=== PATIENT | female | born 1945 | race Caucasian/White ===

== ENCOUNTER 2017-01-26 15:27 | Emergency (ER) | payer MEDICARE, MEDICAID ==
[2017-01-26] MEDS ORDERED: NS 0.9% 1000 ML* 1,000 ML IV ONE (17:03)
[2017-01-26] MEDS ORDERED: LORazepam INJ* 2 MG/ML 1 ML VIAL IV PUSH ONE (17:03)
--- NOTE | 2017-01-26 17:56 | RAD ---
CLINICAL HISTORY: Rectal bleeding COMPARISON: None TECHNIQUE: Noncontrast CT examination of the abdomen and pelvis from the lung bases through the initial tuberosities. FINDINGS: VISUALIZED LUNG BASES: There is consolidation in the dependent inferior portion of the right middle lobe with air bronchograms. At the dependent inferior margin of the left upper lobe there is a 1.5 cm nodule abutting the major fissure. There are hypoventilatory changes at the bilateral lung bases. There is no pleural effusion. There is a small pericardial effusion. ABDOMEN AND PELVIS: Evaluation of the solid organs and vasculature is limited without intravenous contrast. The liver, spleen, pancreas and adrenal glands are grossly normal in appearance. The gallbladder is normal. The kidneys are normal in appearance without focal mass, calcification or signs of hydronephrosis. Evaluation of the gastrointestinal tract is limited without oral contrast. The small and large bowel are not distended. The partially gas-filled appendix measures 6 mm in diameter (coronal image 49). There are distal colonic diverticula becoming more concentrated at the rectosigmoid colon. There is no definite wall thickening or infiltration of the pericolonic fat associated with acute diverticulitis. There is no gross retroperitoneal or mesenteric lymphadenopathy. The pelvic viscera is normal in appearance. The abdominal aorta and iliac arteries are normal in course and diameter. Degenerative changes include multilevel loss of intervertebral disc height involving the lower thoracic and lumbar spine and vacuum disc phenomenon at L5/S1 and L3/L4. There is evidence of vertebroplasty at the L1 vertebral body. There is a chronic appearing compression deformity of the L2 vertebral body.There are no sinister bone lesions. IMPRESSION: 1. Consolidation with air bronchograms in the dependent right middle lobe. Please correlate to signs or symptoms of pneumonia. 2. A 1.5 cm round density abutting the fissure at the dependent-most portion of the left upper lobe has a morphology most consistent with round atelectasis. A neoplasm is considered unlikely but is not completely excluded on this CT imaging alone. 3. Diverticulosis without acute inflammatory changes associated with acute diverticulitis. 4. Additional chronic, degenerative and iatrogenic findings described in the body of the report.
[2017-01-26 18:26] LABS: Urine Bacteria Absent (Absent); Urine Bilirubin Negative (Negative); Urine Glucose Negative (Negative); Urine Nitrite Negative (Negative)
[2017-01-26 18:47] LABS: Hematocrit 45 % (35-47); Hemoglobin 14.9 g/dl (12.0-16.0); Mean Corpuscular HGB Conc 33 g/dl (31-36); Mean Corpuscular Hemoglobin 29 pg (27-31); Mean Corpuscular Volume 87 fL (80-97); Mean Platelet Volume 8 um3 (7.4-10.4); Red Blood Count 5.19 10^6/ul (4.0-5.4); Red Cell Distribution Width 14 % (10.5-15); White Blood Count 7.5 10^3/ul (3.5-10.8)
[2017-01-26 19:00] LABS: Albumin 4.5 g/dL (3.2-5.2); BUN/Creatinine Ratio 25.4 (8-20); C Reactive Protein 2.53 mg/L (< 5.00); Calcium 9.6 mg/dL (8.6-10.3); EGFR African American 104.4 (>60); EGFR Non-African American 81.2 (>60); Globulin 3.1 g/dL (2-4); Potassium 3.5 mmol/L (3.5-5.0); Total Bilirubin 0.7 mg/dL (0.2-1.0); Total Protein 7.6 g/dL (6.4-8.9)
[2017-01-26 19:48] VITALS: BP 124/75
--- NOTE | 2017-01-26 19:58 | ED ---
Jr Ontiveros Gabriel, scribed for Eloisa Sabillon MD on 01/26/17 at 1634 . Abdominal Pain/Female - HPI Summary HPI Summary: This patient is a 71 year old F presenting to [facility] with a chief complaint of ABD pain that began a month ago. The patient rates the pain 8/10 in severity. Symptoms alleviated by nothing. Patient reports blood in stool, constipation, and rectal pain. She reports feeling like she is not fully emptying and feels a blockage high in her intestine. Pt has been taking Miralax with no relief. - History of Current Complaint Chief Complaint: EDAbdPain Stated Complaint: RECTAL BLEEDING Time Seen by Provider: 01/26/17 16:28 Hx Obtained From: Patient Onset/Duration: Lasting Weeks - 8, Still Present Timing: Constant Pain Intensity: 8 Pain Scale Used: 0-10 Numeric Associated Signs and Symptoms: Positive: Other: - blood in stool, constipation, rectal kar Allergies/Adverse Reactions: Allergies Allergy/AdvReac Type Severity Reaction Status Date / Time No Known Allergies Allergy Verified 01/26/17 15:43 Home Medications: Home Medications clonazePAM TAB(*) [KlonoPIN TAB(*)] 0.5 mg PO BEDTIME PRN 01/26/17 [History Confirmed 01/26/17] PMH/Surg Hx/FS Hx/Imm Hx Previously Healthy: No Endocrine/Hematology History: Reports: Hx Thyroid Disease Musculoskeletal History: Reports: Hx Osteoporosis - Cancer History Cancer Type, 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 Infectious Disease History: No Infectious Disease History: Denies: Traveled Outside the [place] in Last 30 Days - Family History Known Family History: Positive: Diabetes Negative: Cardiac Disease - Social History Lives: Alone Alcohol Use: None Hx Substance Use: No Substance Use Type: Reports: None Hx Tobacco Use: No Review of Systems Positive: Abdominal Pain, Other - blood in stool, constipation Positive: Other - rectal pain All Other Systems Reviewed And Are Negative: Yes Physical Exam - Summary Physical Exam Summary: General: Well appearing, no pain distress, Skin: Warm, Skin Color Reflects Adequate Perfusion, Dry Eyes: EOMI, EMELIA ENT: Pharynx normal, TMs normal Neck: Supple, nontender Respiratory: CTA, breath sounds present, no rhonchi, no wheezes, no rales Cardiovascular: RRR, no murmur, no rub, no gallop Abdomen: Soft, nontender, Non-distended, no guarding, no rebound Bowel: Present Rectal: Negative rectal exam no blockages and no blood Musculoskeletal: TIMBO, No edema Neuro: Sensory/motor intact, A&Ox3, CN intact 2-12 Psych: Affect/mood appropriate Triage Information Reviewed: Yes Vital Signs On Initial Exam: Initial Vitals Temp Pulse Resp BP Pulse Ox 97.3 F 80 14 156/78 98 01/26/17 15:36 01/26/17 15:36 01/26/17 15:36 01/26/17 15:36 01/26/17 15:36 Vital Signs Reviewed: Yes Diagnostics - Vital Signs Vital Signs Temp Pulse Resp BP Pulse Ox 01/26/17 15:36 97.3 F 80 14 156/78 98 - Laboratory Lab Results: Lab Results 01/26/17 01/26/17 01/26/17 Range/Units 17:47 17:47 17:50 WBC 7.5 (3.5-10.8) 10^3/ul RBC 5.19 (4.0-5.4) 10^6/ul Hgb 14.9 (12.0-16.0) g/dl Hct 45 (35-47) % MCV 87 (80-97) fL MCH 29 (27-31) pg MCHC 33 (31-36) g/dl RDW 14 (10.5-15) % Plt Count 300 (150-450) 10^3/ul MPV 8 (7.4-10.4) um3 Neut % (Auto) 61.8 (38-83) % Lymph % (Auto) 29.0 (25-47) % [place] % (Auto) 7.0 (1-9) % Eos % (Auto) 1.5 (0-6) % Baso % (Auto) 0.7 (0-2) % Absolute Neuts (auto) 4.6 (1.5-7.7) 10^3/ul Absolute Lymphs (auto) 2.2 (1.0-4.8) 10^3/ul Absolute Monos (auto) 0.5 (0-0.8) 10^3/ul Absolute Eos (auto) 0.1 (0-0.6) 10^3/ul Absolute Basos (auto) 0.1 (0-0.2) 10^3/ul Absolute Nucleated RBC 0 10^3/ul Nucleated RBC % 0 Sodium 138 (133-145) mmol/L Potassium 3.5 (3.5-5.0) mmol/L Chloride 102 (101-111) mmol/L Carbon Dioxide 30 (22-32) mmol/L Anion Gap 6 (2-11) mmol/L BUN 18 (6-24) mg/dL Creatinine 0.71 (0.51-0.95) mg/dL Est GFR ( Amer) 104.4 (>60) Est GFR (Non-Af Amer) 81.2 (>60) BUN/Creatinine Ratio 25.4 H (8-20) Glucose 88 (70-100) mg/dL Calcium 9.6 (8.6-10.3) mg/dL Total Bilirubin 0.70 (0.2-1.0) mg/dL AST 21 (13-39) U/L ALT 21 (7-52) U/L Alkaline Phosphatase 93 (34-104) U/L C-Reactive Protein 2.53 (< 5.00) mg/L Total Protein 7.6 (6.4-8.9) g/dL Albumin 4.5 (3.2-5.2) g/dL Globulin 3.1 (2-4) g/dL Albumin/Globulin Ratio 1.5 (1-3) Lipase 41 (11.0-82.0) U/L Urine Color Yellow Urine Appearance Clear Urine pH 7.0 (5-9) Ur Specific [place] 1.015 (1.010-1.030) Urine Protein Negative (Negative) Urine Ketones Negative (Negative) Urine Blood Negative (Negative) Urine Nitrate Negative (Negative) Urine Bilirubin Negative (Negative) Urine Urobilinogen Negative (Negative) Ur Leukocyte Esterase 3+ H (Negative) Urine WBC (Auto) 2+(11-20/hpf) H (Absent) Urine RBC (Auto) Absent (Absent) Ur Squamous Epith Cells Present H (Absent) Urine Bacteria Absent (Absent) Urine Glucose Negative (Negative) Result Diagrams: 01/26/17 17:47 01/26/17 17:47 Lab Statement: Any lab studies that have been ordered have been reviewed, and results considered in the medical decision making process. - CT CT Pelvis CT Interpretation Completed By: Radiologist - 1. Consolidation with air bronchograms in the dependent right middle lobe. Please correlate to signs or symptoms of pneumonia. 2. A 1.5 cm round density abutting the fissure at the dependent-most portion of the left upper lobe has a morphology most consistent with round atelectasis. A neoplasm is considered unlikely but is not completely excluded on this CT imaging alone. 3. Diverticulosis without acute inflammatory changes associated with acute diverticulitis. 4. Additional chronic, degenerative and iatrogenic findings described in the body of the report. ED physician has reviewed this radiology report and agrees. Re-Evaluation - Re-Evaluation First Eval Re-Evaluation Time: 19:30 Change: Unchanged - Dicussed patient care and discharge Abdominal Pain Fem Course/Dx - Course Course Of Treatment: 71 yo female with rectal bleeding after trying to push stool out with concern over chronic constipation rectal discomfort and abd pain. her ct was neg for retained stool and this was discussed with the pt - Diagnoses Provider Diagnoses: Rectal pain, Constipation Discharge - Discharge Plan Condition: Stable Disposition: HOME Patient Education Materials: High Fiber Diet (ED), Rectal Pain (ED) Referrals: Chuy Herrera DO [Primary Care Provider] - 3 Days Additional Instructions: RETURN TO THE EMERGENCY DEPARTMENT FOR CHANGING OR WORSENING SYMPTOMS. The documentation as recorded by the Jr mcallister Gabriel accurately reflects the service I personally performed and the decisions made by , Eloisa Sabillon MD.
== END 2017-01-26 20:18 | disposition home or self-care (01) ==
LOC: ED 15:27
DX: K62.89 Other specified diseases of anus and rectum (principal); K59.00 Constipation, unspecified; R10.9 Unspecified abdominal pain
CPT/HCPCS: 36415; 74176; 80053; 81003; 81015; 83690; 85025; 86140; 87086; 96374; 99283; J2060

== ENCOUNTER 2018-04-27 11:23 | Emergency (ER) | payer MEDICARE, MEDICAID ==
[2018-04-27 13:08] VITALS: BP 137/88
[2018-04-27 13:32] LABS: Urine Appearance Clear; Urine Bacteria Absent (Absent); Urine Bilirubin Negative (Negative); Urine Blood 1+ (Negative); Urine Color Amber; Urine Glucose Negative (Negative); Urine Ketones 1+ (Negative); Urine Nitrite Negative (Negative); Urine Protein Negative (Negative); Urine Red Blood Cell Trace(0-2/hpf) (Absent); Urine Specific Gravity 1.024 (1.010-1.030); Urine Squamous Epithelial Cell Present (Absent); Urine Urobilinogen Negative (Negative); Urine White Blood Cell Trace(0-5/hpf) (Absent)
[2018-04-27 13:40] LABS: ABS Basophils 0.1 10^3/ul (0-0.2); ABS Eosinophils 0 10^3/ul (0-0.6); ABS Lymphocytes 1.5 10^3/ul (1.0-4.8); ABS Monocytes 0.6 10^3/ul (0-0.8); ABS Neutrophils 6.1 10^3/ul (1.5-7.7); ABS Nucleated RBC 0 10^3/ul; Eosinophil % 0.3 %; Hematocrit 43 % (35-47); Hemoglobin 14.2 g/dl (12.0-16.0); Lymphocyte % 18.2 %; Mean Corpuscular HGB Conc 33 g/dl (31-36); Mean Corpuscular Hemoglobin 29 pg (27-31); Mean Corpuscular Volume 87 fL (80-97); Mean Platelet Volume 7.9 fL (7.4-10.4); Nucleated Red Blood Cells % 0; Platelet Count 236 10^3/ul (150-450); Red Blood Count 4.94 10^6/ul (4.00-5.40); Red Cell Distribution Width 14 % (10.5-15); White Blood Count 8.4 10^3/ul (3.5-10.8)
[2018-04-27 13:49] LABS: Activated Partial Thrombo Time 30.9 seconds (26.0-36.3); INR 0.98 (0.77-1.02)
[2018-04-27 14:04] LABS: Albumin 4.1 g/dL (3.2-5.2); Albumin/Globulin Ratio 1.4 (1-3); BUN/Creatinine Ratio 25.7 (8-20); C Reactive Protein 56.52 mg/L (<8.01); Calcium 9.3 mg/dL (8.6-10.3); EGFR African American 99.2 (>60); Globulin 2.9 g/dL (2-4); Potassium 3.5 mmol/L (3.5-5.0)
--- NOTE | 2018-04-27 14:20 | ED ---
Abdominal Pain/Female - HPI Summary HPI Summary: 73 year old F presenting to [facility] with a chief complaint of gradually worsening , constant left sided flank pain described as sharp, radiating to her lower back since several weeks, worse since last week. The patient rates the pain 7/ 10 in severity. Symptoms aggravated by position changes. Symptoms alleviated by nothing. Patient reports increasing frequency in urination. Patient was seen in [place] for vaginal bleeding last week ago. Pap smear was done by [facility] that was inconclusive. Patient reports that she has had cancer twice. - History of Current Complaint Chief Complaint: EDFlankPain Stated Complaint: ABD/LOWER BACK PAIN Time Seen by Provider: 04/27/18 13:59 Hx Obtained From: Patient Onset/Duration: Lasting Weeks, Still Present, Worse Since - last week Timing: Constant Severity Currently: Severe Pain Intensity: 7 Pain Scale Used: 0-10 Numeric Location: Flank - left Radiates: Yes Radiates to: Back Character: Sharp Aggravating Factor(s): Other: - position changes Alleviating Factor(s): Nothing Associated Signs and Symptoms: Positive: Other: - increasing frequency in urination Allergies/Adverse Reactions: Allergies Allergy/AdvReac Type Severity Reaction Status Date / Time No Known Allergies Allergy Verified 04/27/18 14:16 Home Medications: Home Medications clonazePAM [Clonazepam] 0.5 mg PO DAILY PRN 04/27/18 [History Confirmed 04/27/18 ] PMH/Surg Hx/FS Hx/Imm Hx Previously Healthy: No Endocrine/Hematology History: Reports: Hx Thyroid Disease Musculoskeletal History: Reports: Hx Osteoporosis - Cancer History Cancer Type, 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 LEFT LUMPECTOMY Infectious Disease History: No Infectious Disease History: Denies: Traveled Outside the [place] in Last 30 Days - Family History Known Family History: Positive: Diabetes Negative: Cardiac Disease - Social History Alcohol Use: None Hx Substance Use: No Substance Use Type: Reports: None Hx Tobacco Use: No Smoking Status (MU): Unknown if Ever Smoked Review of Systems Positive: Other - left flank pain Positive: frequency All Other Systems Reviewed And Are Negative: Yes Physical Exam - Summary Physical Exam Summary: Appearance: The patient is well-nourished in no acute distress and in no acute pain. Skin: The skin is warm and dry and skin color reflects adequate perfusion. HEENT: The head is normocephalic and atraumatic. The pupils are equal and reactive. The conjunctivae are clear and without drainage. Nares are patent and without drainage. Mouth reveals moist mucous membranes and the throat is without erythema and exudate. The external ears are intact. The ear canals are patent and without drainage. The tympanic membranes are intact. Neck: The neck is supple with full range of motion and non-tender. There are no carotid bruits. There is no neck vein distension. Respiratory: Chest is non-tender. Lungs are clear to auscultation and breath sounds are symmetrical and equal. Cardiovascular: Heart is regular rate and rhythm. There is no murmur or rub auscultated. There is no peripheral edema and pulses are symmetrical and equal. Abdomen: mild LLQ tenderness, no CVA tenderness Musculoskeletal: There is no back tenderness noted. Extremities are non-tender with full range of motion. There is good capillary refill. There is no peripheral edema or calf tenderness elicited. Neurological: Patient is alert and oriented to person, place and time. The patient has symmetrical motor strength in all four extremities. Cranial nerves are grossly intact. Deep tendon reflexes are symmetrical and equal in all four extremities. Psychiatric: The patient is emotionally labile Triage Information Reviewed: Yes Vital Signs On Initial Exam: Initial Vitals Temp Pulse Resp BP Pulse Ox 98 F 90 16 153/94 98 04/27/18 11:30 04/27/18 11:30 04/27/18 11:30 04/27/18 11:30 04/27/18 11:30 Vital Signs Reviewed: Yes Diagnostics - Vital Signs Vital Signs Temp Pulse Resp BP Pulse Ox 04/27/18 13:05 98.6 F 88 16 137/88 97 04/27/18 11:30 98 F 90 16 153/94 98 - Laboratory Lab Results: Lab Results 04/27/18 04/27/18 04/27/18 Range/Units 12:07 13:31 13:31 WBC 8.4 (3.5-10.8) 10^3/ul RBC 4.94 (4.00-5.40) 10^6/ul Hgb 14.2 (12.0-16.0) g/dl Hct 43 (35-47) % MCV 87 (80-97) fL MCH 29 (27-31) pg MCHC 33 (31-36) g/dl RDW 14 (10.5-15) % Plt Count 236 (150-450) 10^3/ul MPV 7.9 (7.4-10.4) fL Neut % (Auto) 72.8 % Lymph % (Auto) 18.2 % [place] % (Auto) 7.7 % Eos % (Auto) 0.3 % Baso % (Auto) 1.0 % Absolute Neuts (auto) 6.1 (1.5-7.7) 10^3/ul Absolute Lymphs (auto) 1.5 (1.0-4.8) 10^3/ul Absolute Monos (auto) 0.6 (0-0.8) 10^3/ul Absolute Eos (auto) 0 (0-0.6) 10^3/ul Absolute Basos (auto) 0.1 (0-0.2) 10^3/ul Absolute Nucleated RBC 0 10^3/ul Nucleated RBC % 0 INR (Anticoag Therapy) (0.77-1.02) APTT (26.0-36.3) seconds Sodium 138 (135-145) mmol/L Potassium 3.5 (3.5-5.0) mmol/L Chloride 103 (101-111) mmol/L Carbon Dioxide 26 (22-32) mmol/L Anion Gap 9 (2-11) mmol/L BUN 18 (6-24) mg/dL Creatinine 0.70 (0.51-0.95) mg/dL Est GFR ( Amer) 99.2 (>60) Est GFR (Non-Af Amer) 82.0 (>60) BUN/Creatinine Ratio 25.7 H (8-20) Glucose 90 (70-100) mg/dL Lactic Acid (0.5-2.0) mmol/L Calcium 9.3 (8.6-10.3) mg/dL Magnesium 2.0 (1.9-2.7) mg/dL Total Bilirubin 1.00 (0.2-1.0) mg/dL AST 17 (13-39) U/L ALT 15 (7-52) U/L Alkaline Phosphatase 90 (34-104) U/L Total Creatine Kinase 30 (10-223) U/L Troponin I 0.00 (<0.04) ng/mL C-Reactive Protein 56.52 H (<8.01) mg/L B-Natriuretic Peptide (<=100) pg/mL Total Protein 7.0 (6.4-8.9) g/dL Albumin 4.1 (3.2-5.2) g/dL Globulin 2.9 (2-4) g/dL Albumin/Globulin Ratio 1.4 (1-3) Amylase 45 (29-103) U/L Lipase 28 (11.0-82.0) U/L Urine Color [place] Urine Appearance Clear Urine pH 5.0 (5-9) Ur Specific [place] 1.024 (1.010-1.030) Urine Protein Negative (Negative) Urine Ketones 1+ A (Negative) Urine Blood 1+ A (Negative) Urine Nitrate Negative (Negative) Urine Bilirubin Negative (Negative) Urine Urobilinogen Negative (Negative) Ur Leukocyte Esterase Trace A (Negative) Urine WBC (Auto) Trace(0-5/hpf) (Absent) Urine RBC (Auto) Trace(0-2/hpf) (Absent) Ur Squamous Epith Cells Present A (Absent) Urine Bacteria Absent (Absent) Urine Glucose Negative (Negative) 04/27/18 04/27/18 04/27/18 Range/Units 13:31 13:31 13:31 WBC (3.5-10.8) 10^3/ul RBC (4.00-5.40) 10^6/ul Hgb (12.0-16.0) g/dl Hct (35-47) % MCV (80-97) fL MCH (27-31) pg MCHC (31-36) g/dl RDW (10.5-15) % Plt Count (150-450) 10^3/ul MPV (7.4-10.4) fL Neut % (Auto) % Lymph % (Auto) % [place] % (Auto) % Eos % (Auto) % Baso % (Auto) % Absolute Neuts (auto) (1.5-7.7) 10^3/ul Absolute Lymphs (auto) (1.0-4.8) 10^3/ul Absolute Monos (auto) (0-0.8) 10^3/ul Absolute Eos (auto) (0-0.6) 10^3/ul Absolute Basos (auto) (0-0.2) 10^3/ul Absolute Nucleated RBC 10^3/ul Nucleated RBC % INR (Anticoag Therapy) 0.98 (0.77-1.02) APTT 30.9 (26.0-36.3) seconds Sodium (135-145) mmol/L Potassium (3.5-5.0) mmol/L Chloride (101-111) mmol/L Carbon Dioxide (22-32) mmol/L Anion Gap (2-11) mmol/L BUN (6-24) mg/dL Creatinine (0.51-0.95) mg/dL Est GFR ( Amer) (>60) Est GFR (Non-Af Amer) (>60) BUN/Creatinine Ratio (8-20) Glucose (70-100) mg/dL Lactic Acid 0.9 (0.5-2.0) mmol/L Calcium (8.6-10.3) mg/dL Magnesium (1.9-2.7) mg/dL Total Bilirubin (0.2-1.0) mg/dL AST (13-39) U/L ALT (7-52) U/L Alkaline Phosphatase (34-104) U/L Total Creatine Kinase (10-223) U/L Troponin I (<0.04) ng/mL C-Reactive Protein (<8.01) mg/L B-Natriuretic Peptide 36 (<=100) pg/mL Total Protein (6.4-8.9) g/dL Albumin (3.2-5.2) g/dL Globulin (2-4) g/dL Albumin/Globulin Ratio (1-3) Amylase (29-103) U/L Lipase (11.0-82.0) U/L Urine Color Urine Appearance Urine pH (5-9) Ur Specific [place] (1.010-1.030) Urine Protein (Negative) Urine Ketones (Negative) Urine Blood (Negative) Urine Nitrate (Negative) Urine Bilirubin (Negative) Urine Urobilinogen (Negative) Ur Leukocyte Esterase (Negative) Urine WBC (Auto) (Absent) Urine RBC (Auto) (Absent) Ur Squamous Epith Cells (Absent) Urine Bacteria (Absent) Urine Glucose (Negative) Result Diagrams: 04/27/18 13:31 04/27/18 13:31 Lab Statement: Any lab studies that have been ordered have been reviewed, and results considered in the medical decision making process. - Radiology CXR Radiology Interpretation Completed By: Radiologist Summary of Radiographic Findings: LOW LUNG VOLUMES, SMALL INFILTRATES AT BOTH LUNG BASES SUGGESTIVE OF ATELECTASIS. ED physician has reviewed this report. - CT Abd/Pel CT Interpretation Completed By: Radiologist Summary of CT Findings: NO HYDRONEPHROSIS OR NEPHROLITHIASIS. DIVERTICULOSIS. ED physician has reviewed this report. Re-Evaluation - Re-Evaluation First Eval Re-Evaluation Time: 16:23 Comment: Patient given results of labs and CT scan. Abdominal Pain Fem Course/Dx - Course Course Of Treatment: Ms. Rogers presented quite concerned that she had developed cancer. She has been having some left flank pain and preventing either vaginally or in her urine. She was nontoxic in appearance but quite upset and concerned. Her vital signs are stable. Labs were obtained and unremarkable. A noncontrasted CT scan was obtained for the left flank pain and microscopic hematuria and was unremarkable. I spoke with Jeanie Tavarez of oncology who reviewed the CT scan and recommended some laxative and follow up with oncology. - Diagnoses Provider Diagnoses: Abdominal pain - Provider Notifications Discussed Care Of Patient With: Quique Stokes Time Discussed With Above Provider: 16:35 Instructed by Provider To: Other - Dr. Stokes, oncology, agrees with discharging patient. Discharge - Sign-Out/Discharge Documenting (check all that apply): Patient Departure - Discharge Patient Received Moderate/Deep Sedation with Procedure: No - Discharge Plan Condition: Stable Disposition: HOME Patient Education Materials: Abdominal Pain (ED) Referrals: Chuy Herrera, [Primary Care Provider] - Neri Velez MD [Medical Doctor] - 3 Days Quique Stokes MD [Medical Doctor] - 3 Days Additional Instructions: Follow up with Dr. Stokes, oncology, and Dr. Velez, GI. Return to the Emergency Department for new or worsening symptoms. - Billing Disposition and Condition Condition: STABLE Disposition: Home - Attestation Statements Document Initiated by Tanvie: Yes Documenting Scribe: May Burt Provider For Whom Mauricio is Documenting (Include Credential): Gurpreet Chance MD Scribe Attestation: May Ontiveros, scribed for Gurpreet Chance MD on 04/27/18 at 2103. Scribe Documentation Reviewed: Yes Provider Attestation: The documentation as recorded by the May mcallister accurately reflects the service I personally performed and the decisions made by me, Gurpreet Chance MD Status of Scribgiuseppe Document: Viewed
[2018-04-27] MEDS: Magnesium CITRATE* 300 ML BTL PO ONE ×3 (17:01→17:17)
== END 2018-04-27 17:00 | disposition home or self-care (01) ==
LOC: ED 11:23
DX: M54.5 Low back pain (principal); R10.9 Unspecified abdominal pain; K57.90 Diverticulosis of intestine, part unspecified, without perforation or abscess without bleeding; Z85.048 Personal history of other malignant neoplasm of rectum, rectosigmoid junction, and anus
CPT/HCPCS: 36415; 71045; 74176; 80053; 81003; 81015; 82150; 82550; 83605; 83690; 83735; 83880; 84484; 85025; 85610; 85730; 86140; 87040; 87086; 93005; 96361; 96365; 99282; 99284; A9270-GY

== ENCOUNTER 2024-02-04 18:29 | Inpatient (IN) ==
[2024-02-04] MEDS: fentaNYL 100 mcg/2 ml 50 MCG/ML VIAL IV SLOW PU ONE (19:19)
[2024-02-04] MEDS: Acetaminophen IV 1 GM/100ML 1,000 MG/100 ML BAG IV ONE (20:54)
[2024-02-04] MEDS: Heparin 5000 UNITS/ML 1 mL VIAL SUBCUT ONE (21:41)
[2024-02-04] MEDS: Polyethylene Glycol 3350 17 GM PACKET PO SCH (21:53)
[2024-02-04 22:35] LABS: Activated Partial Thrombo Time 29.8 seconds (26.0-38.0); INR 1.02 (0.85-1.14)
[2024-02-04 22:53] LABS: Calcium 8.9 mg/dL (8.6-10.3); Creatinine, Serum 0.61 mg/dL (0.51-0.95); eGFR CKD-EPI 90.9 (>60)
[2024-02-04 23:21] LABS: Vitamin D Total 25(OH) 17.3 ng/mL (20-50)
[2024-02-05 12:31] LABS: ABS Lymphocytes 0.8 10^3/uL (1.0-4.8); ABS Monocytes 0.6 10^3/uL (0.0-0.9); ABS Neutrophils 6.6 10^3/uL (1.5-7.6); Eosinophil % 0.2 %; Hemoglobin 12.6 g/dL (11.5-14.3); Lymphocyte % 10.1 %; Mean Corpuscular Hemoglobin 29.5 pg (27-33); Mean Corpuscular Hgb Conc 33.2 g/dL (31-36); Mean Corpuscular Volume 88.9 fL (80-97); Mean Platelet Volume 7.7 fL (7.5-11.2); Platelet Count 236 10^3/uL (150-450); Red Blood Count 4.27 10^6/uL (3.63-4.92); Red Cell Distribution Width 13.9 % (12-17); White Blood Count 8.1 10^3/uL (3.8-11.8)
[2024-02-05] MEDS: Senna TAB 8.6 mg TAB PO SCH (13:48)
[2024-02-05] MEDS: Acetaminophen IV 1 GM/100ML 1,000 MG/100 ML BAG IV SCH (13:53)
[2024-02-05] MEDS ORDERED: Mineral Oil ENEMA 118 ML/BOTTLE BOTTLE PR PRN (21:00)
[2024-02-06 09:50] LABS: ABS Eosinophils 0.1 10^3/uL (0.0-0.5); ABS Lymphocytes 1.2 10^3/uL (1.0-4.8); ABS Monocytes 0.9 10^3/uL (0.0-0.9); ABS Neutrophils 6.2 10^3/uL (1.5-7.6); Eosinophil % 1.5 %; Hematocrit 37.4 % (35-45); Hemoglobin 12.5 g/dL (11.5-14.3); Lymphocyte % 14.5 %; Mean Corpuscular Hemoglobin 29.5 pg (27-33); Mean Corpuscular Hgb Conc 33.4 g/dL (31-36); Mean Corpuscular Volume 88.4 fL (80-97); Mean Platelet Volume 7.5 fL (7.5-11.2); Platelet Count 227 10^3/uL (150-450); Red Blood Count 4.23 10^6/uL (3.63-4.92); Red Cell Distribution Width 14.3 % (12-17); White Blood Count 8.4 10^3/uL (3.8-11.8)
[2024-02-06 11:17] LABS: Albumin 3.4 g/dL (3.2-5.2); Albumin/Globulin Ratio 1.6 (1-3); Calcium 8.3 mg/dL (8.6-10.3); Creatinine, Serum 0.6 mg/dL (0.51-0.95); Globulin 2.1 g/dL (2-4); Magnesium 1.9 mg/dL (1.9-2.7); Potassium 3.9 mmol/L (3.5-5.0); Total Bilirubin 0.6 mg/dL (0.2-1.0); Total Protein 5.5 g/dL (6.4-8.9); eGFR CKD-EPI 91.2 (>60)
[2024-02-06] MEDS ORDERED: Bupivacaine 0.5% SDV PF 30ML VIAL ONE (13:27)
[2024-02-06] MEDS ORDERED: Metoclopramide 5 MG/ML VIAL (10 mg) IV PRN (13:31)
[2024-02-06] MEDS ORDERED: Naloxone 0.4 mg VIAL 0.4 mg/ml 1 ml VIAL IV PRN (13:31)
[2024-02-06] MEDS ORDERED: ceFAZolin 2 GM PREMIX 2 GM/50 ML BAG ONE (13:33)
[2024-02-06] MEDS ORDERED: fentaNYL 250 mcg/5 ml 50 MCG/ML 5 ml VIAL (250 MCG) ONE (13:50)
[2024-02-06] MEDS ORDERED: Rocuronium 50 mg VIAL 10 mg/ml 5 ml VIAL (50 mg) ONE (13:51)
[2024-02-06] MEDS ORDERED: NS 0.45% 1000 ml BAG 1,000 ML IV SCH (14:00)
[2024-02-06] MEDS ORDERED: Dexamethasone IV 4 MG/ML VIAL 1 ml VIAL ONE (15:01)
[2024-02-06] MEDS ORDERED: Ondansetron 4 mg VIAL 2 MG/ML 2 ml VIAL ONE ×2 (15:01→17:17)
[2024-02-06] MEDS ORDERED: Acetaminophen IV 1 GM/100ML 1,000 MG/100 ML BAG IV ONE (15:02)
[2024-02-06] MEDS ORDERED: Albumin Human 5% 12.5 GM/250 ML BTL IV ONE (15:21)
[2024-02-06] MEDS ORDERED: Magnesium Hydroxide LIQ 30 ML UDC PO PRN (17:01)
[2024-02-06] MEDS ORDERED: Lactulose 30 ml UDC PO PRN (17:01)
[2024-02-06] MEDS ORDERED: Calcium Carb (TUMS) 500 mg CHEW TAB PO PRN (17:01)
[2024-02-06] MEDS ORDERED: fentaNYL 100 mcg/2 ml 50 MCG/ML VIAL ONE (17:12)
[2024-02-06] MEDS: fentaNYL 100 mcg/2 ml 50 MCG/ML VIAL IV PRN (17:13)
[2024-02-06] MEDS ORDERED: ceFAZolin *3* GM in NS PREMIX 3 GM/100 ML BAG IV SCH (17:15)
[2024-02-06] MEDS: Ondansetron 4 mg VIAL 2 MG/ML 2 ml VIAL IV PRN (17:17)
[2024-02-06] MEDS: Buffered Lidocaine 1% SYRIN 1 ml INTRADERM ONE (22:08)
[2024-02-06] MEDS: Acetaminophen IV 1 GM/100ML 1,000 MG/100 ML BAG IV ONE (22:08)
[2024-02-06] MEDS: Scopolamine 1 mg/72hr PATCH TRANSDERM ONE (22:08)
[2024-02-06] MEDS: Lactated Ringers 1000 ml BAG 1,000 ML IV SCH ×2 (22:09)
[2024-02-06] MEDS: Magnesium Hydroxide LIQ 30 ML UDC PO SCH (22:55)
[2024-02-06] MEDS: ceFAZolin 1 GM Q8H (ADVAN) IVPB SCH (23:30)
[2024-02-07 06:44] LABS: ABS Lymphocytes 1.2 10^3/uL (1.0-4.8); ABS Monocytes 0.9 10^3/uL (0.0-0.9); ABS Neutrophils 8.9 10^3/uL (1.5-7.6); ABS Nucleated RBC 0.01 10^3/ul; Eosinophil % 0.1 %; Hematocrit 35.5 % (35-45); Mean Corpuscular Hemoglobin 29.8 pg (27-33); Mean Corpuscular Volume 87.9 fL (80-97); Mean Platelet Volume 7.8 fL (7.5-11.2); Nucleated Red Blood Cells % 0.1 %/100WBC (0.0-0.8); Platelet Count 235 10^3/uL (150-450); Red Blood Count 4.04 10^6/uL (3.63-4.92); Red Cell Distribution Width 14.1 % (12-17)
[2024-02-07 06:52] LABS: INR 0.98 (0.85-1.14)
[2024-02-07 06:58] LABS: Albumin 3.5 g/dL (3.2-5.2); Albumin/Globulin Ratio 1.7 (1-3); Calcium 8.8 mg/dL (8.6-10.3); Creatinine, Serum 0.55 mg/dL (0.51-0.95); Globulin 2.1 g/dL (2-4); Magnesium 1.9 mg/dL (1.9-2.7); Potassium 4.1 mmol/L (3.5-5.0); Total Bilirubin 0.6 mg/dL (0.2-1.0); Total Protein 5.6 g/dL (6.4-8.9); eGFR CKD-EPI 93.2 (>60)
[2024-02-07] MEDS ORDERED: Vitamin THERAPEUTIC TAB PO SCH (09:00)
[2024-02-07] MEDS: Magnesium Sulfate IV 1GM/100ML 1 GM/100 ML BAG IV ONE (09:21)
[2024-02-07] MEDS: Enoxaparin 40 MG/0.4 ML SYR SUBCUT SCH (21:27)
[2024-02-08 06:55] LABS: ABS Basophils 0.1 10^3/uL (0.0-0.1); ABS Eosinophils 0.1 10^3/uL (0.0-0.5); ABS Lymphocytes 1.1 10^3/uL (1.0-4.8); ABS Monocytes 0.8 10^3/uL (0.0-0.9); ABS Neutrophils 7.3 10^3/uL (1.5-7.6); Eosinophil % 1.4 %; Hematocrit 27.8 % (35-45); Hemoglobin 9.7 g/dL (11.5-14.3); Lymphocyte % 11.2 %; Mean Corpuscular Hemoglobin 30.7 pg (27-33); Mean Corpuscular Volume 87.8 fL (80-97); Mean Platelet Volume 7.9 fL (7.5-11.2); Platelet Count 215 10^3/uL (150-450); Red Blood Count 3.16 10^6/uL (3.63-4.92); Red Cell Distribution Width 14.1 % (12-17); White Blood Count 9.4 10^3/uL (3.8-11.8)
[2024-02-08 07:45] LABS: Calcium 7.9 mg/dL (8.6-10.3); Creatinine, Serum 0.56 mg/dL (0.51-0.95); Potassium 4.1 mmol/L (3.5-5.0); eGFR CKD-EPI 92.8 (>60)
[2024-02-08 12:37] LABS: ABS Eosinophils 0.2 10^3/uL (0.0-0.5); ABS Monocytes 0.4 10^3/uL (0.0-0.9); ABS Neutrophils 6.9 10^3/uL (1.5-7.6); Eosinophil % 2.4 %; Hematocrit 29.7 % (35-45); Hemoglobin 10.2 g/dL (11.5-14.3); Lymphocyte % 11.9 %; Mean Corpuscular Hemoglobin 30.4 pg (27-33); Mean Corpuscular Hgb Conc 34.4 g/dL (31-36); Mean Corpuscular Volume 88.5 fL (80-97); Mean Platelet Volume 7.6 fL (7.5-11.2); Platelet Count 213 10^3/uL (150-450); Red Blood Count 3.36 10^6/uL (3.63-4.92); White Blood Count 8.6 10^3/uL (3.8-11.8)
[2024-02-09 06:12] LABS: ABS Eosinophils 0.3 10^3/uL (0.0-0.5); ABS Lymphocytes 1.4 10^3/uL (1.0-4.8); ABS Monocytes 0.7 10^3/uL (0.0-0.9); ABS Neutrophils 6.1 10^3/uL (1.5-7.6); Eosinophil % 3.4 %; Hematocrit 29.2 % (35-45); Lymphocyte % 16.5 %; Mean Corpuscular Hemoglobin 30.3 pg (27-33); Mean Corpuscular Hgb Conc 34.1 g/dL (31-36); Mean Corpuscular Volume 88.8 fL (80-97); Mean Platelet Volume 7.7 fL (7.5-11.2); Platelet Count 233 10^3/uL (150-450); Red Blood Count 3.29 10^6/uL (3.63-4.92); Red Cell Distribution Width 14.1 % (12-17); White Blood Count 8.5 10^3/uL (3.8-11.8)
[2024-02-09 06:16] LABS: Rapid COVID-19 Molecular Undetected (Undetected)
[2024-02-09 06:36] LABS: Calcium 8.3 mg/dL (8.6-10.3); Creatinine, Serum 0.5 mg/dL (0.51-0.95); Potassium 4.4 mmol/L (3.5-5.0); eGFR CKD-EPI 95.3 (>60)
[2024-02-10 06:39] LABS: Hematocrit 27.5 % (35-45); Hemoglobin 9.7 g/dL (11.5-14.3); Mean Corpuscular Hemoglobin 30.9 pg (27-33); Mean Corpuscular Hgb Conc 35.2 g/dL (31-36); Mean Platelet Volume 7.6 fL (7.5-11.2); Platelet Count 242 10^3/uL (150-450); Red Blood Count 3.12 10^6/uL (3.63-4.92); Red Cell Distribution Width 13.8 % (12-17); White Blood Count 7.7 10^3/uL (3.8-11.8)
[2024-02-10 06:55] LABS: Calcium 8.1 mg/dL (8.6-10.3); Creatinine, Serum 0.53 mg/dL (0.51-0.95); Potassium 4.4 mmol/L (3.5-5.0)
[2024-02-10 11:25] VITALS: BP 105/70
== END 2024-02-10 12:20 | DRG 522 ==
LOC: ED 18:29 → EDHOLD 19:31 → SUATTDRO 19:31 → SSU 20:19
PROVIDERS: ADMIT Student in an Organized Health Care Education/Training Program; ATTEND Internal Medicine